=== PATIENT | female | born 1975 | race Caucasian/White ===

== ENCOUNTER 2022-01-22 00:09 | Inpatient (IN) ==
[2022-01-22 02:20] LABS: BUN/Creatinine Ratio 8 (6-26); Blood Urea Nitrogen 7 mg/dL (6-20); Calcium 8.7 mg/dL (8.6-10.3); Carbon Dioxide 24 mEq/L (23-29); Chloride 91 mEq/L (98-107); Glucose 124 mg/dL (70-105); Osmolality,Calculated 257 (280-300); Sodium 124 mEq/L (136-145)
[2022-01-22] MEDS ORDERED: 0.9 % Sodium Chloride 1,000 ML IVC ONE (02:31)
[2022-01-22 02:57] LABS: Alanine Aminotransferase 14 Units/L (7-52); Albumin 4.1 g/dL (3.5-5.7); Albumin/Globulin Ratio 1.5 (1.1-2.2); Alkaline Phosphatase 101 Units/L (34-104); Aspartate Amino Transferase 23 Units/L (13-39); Bilirubin,Indirect 0.5 mg/dL (0.0-1.0); Bilirubin,Total 0.5 mg/dL (0.3-1.0); Ethanol < 10 mg/dL (Less than 10); Globulin 2.8 g/dL (2.4-3.5); Total Protein 6.9 g/dL (6.4-8.9)
[2022-01-22 03:02] LABS: Basophils % 0.3 %; Eosinophils # 0.1 K/mcL (0.0-0.6); Eosinophils % 1.8 %; Hematocrit 36.5 % (35.3-44.9); Hemoglobin 12.7 g/dL (11.5-15.4); Immature Granulocytes % 0.1 % (0-4); Lymphocytes # 2.4 K/mcL (0.6-4.6); Lymphocytes % 30.3 %; Mean Corpuscular HGB Conc 34.8 g/dL (31.6-35.5); Mean Corpuscular Hemoglobin 29.2 pg (28.0-33.3); Mean Corpuscular Volume 83.9 fL (83.0-100.0); Mean Platelet Volume 10.4 fL (9.4-12.4); Monocytes # 0.6 K/mcL (0.0-1.3); Monocytes % 7.6 %; Neutrophils # 4.7 K/mcL (1.6-8.9); Platelet Count 255 K/mcL (140-400); Red Blood Count 4.35 M/mcL (3.82-4.97); Red Cell Distribution Width 13.5 % (11.5-14.5); Segmented Neutrophils % 59.9 %; White Blood Count 7.8 K/mcL (4.3-11.1)
[2022-01-22] MEDS ORDERED: Potassium Chloride Elixir 20 MEQ/15 ML UDC PO ONE (03:36)
[2022-01-22 03:37] LABS: Bilirubin,Urine Negative (Negative); Blood,Urine Negative (Negative); Clarity,Urine Clear (Clear); Color,Urine Colorless (Yellow); Glucose,Urine (UA) Normal (Normal); Ketones,Urine Negative (Negative); Leukocyte Esterase,Urine Negative (Negative); Nitrite,Urine Negative (Negative); PH,Urine 6.5 pH Units (5.0-8.0); Protein,Urine Negative (Neg-Trace); Specific Gravity,Urine 1.005 (1.010-1.025); Urobilinogen,Urine Normal (Normal)
[2022-01-22 03:50] LABS: Amphetamine Screen,Urine Negative ng/mL (Cutoff=1000); Barbiturate Screen,Urine Negative ng/mL (Cutoff=200); Benzodiazepines Screen,Urine Negative ng/mL (Cutoff=200); Cannabinoid Screen,Urine Positive ng/mL (Cutoff = 50); Cocaine Screen,Urine Negative ng/mL (Cutoff= 300); Opiate Screen,Urine Negative ng/mL (Cutoff=300); Phencyclidine Screen,Urine Negative ng/mL (Cutoff=25)
[2022-01-22 03:56] LABS: Magnesium 2.4 mg/dL (1.6-2.6)
[2022-01-22] MEDS ORDERED: Naloxone 0.4 MG/ML INJ IVP PRN (04:08)
[2022-01-22] MEDS ORDERED: Melatonin 3 MG TABLET PO PRN (04:08)
[2022-01-22] MEDS ORDERED: 0.9 % Sodium Chloride 1,000 ML IVC SCH (04:15)
[2022-01-22] MEDS ORDERED: Sennosides/Docusate Sodium TABLET PO PRN (05:50)
[2022-01-22 14:13] LABS: Calcium 8.6 mg/dL (8.6-10.3); Potassium 4.3 mEq/L (3.5-5.1)
[2022-01-22] MEDS: *HR* Labetalol 20 MG/4 ML SYRINGE IVP PRN ×2 (14:46→22:06)
[2022-01-22] MEDS: amLODIPine 5 MG TABLET PO SCH (17:36)
[2022-01-23] MEDS: *HR* Labetalol 20 MG/4 ML SYRINGE IVP PRN ×2 (03:11→10:52)
[2022-01-23 06:46] LABS: Basophils # 0.1 K/mcL (0.0-0.2); Basophils % 0.4 %; Eosinophils # 0.2 K/mcL (0.0-0.6); Eosinophils % 1.8 %; Hematocrit 43.9 % (35.3-44.9); Immature Granulocytes % 0.4 % (0-4); Lymphocytes # 2.8 K/mcL (0.6-4.6); Lymphocytes % 22.8 %; Mean Corpuscular HGB Conc 33.7 g/dL (31.6-35.5); Mean Corpuscular Hemoglobin 28.8 pg (28.0-33.3); Mean Corpuscular Volume 85.4 fL (83.0-100.0); Mean Platelet Volume 9.3 fL (9.4-12.4); Monocytes # 0.8 K/mcL (0.0-1.3); Monocytes % 6.7 %; Platelet Count 476 K/mcL (140-400); Red Blood Count 5.14 M/mcL (3.82-4.97); Red Cell Distribution Width 14.1 % (11.5-14.5); Segmented Neutrophils % 67.9 %
[2022-01-23 07:01] LABS: BUN/Creatinine Ratio 10 (6-26); Blood Urea Nitrogen 7 mg/dL (6-20); Calcium 9.7 mg/dL (8.6-10.3); Carbon Dioxide 24 mEq/L (23-29); Chloride 96 mEq/L (98-107); Glucose 113 mg/dL (70-105); Osmolality,Calculated 269 (280-300); Potassium 3.8 mEq/L (3.5-5.1); Sodium 130 mEq/L (136-145)
[2022-01-23 07:06] LABS: Hemoglobin 14.8 g/dL (11.5-15.4); Neutrophils # 8.4 K/mcL (1.6-8.9); White Blood Count 12.3 K/mcL (4.3-11.1)
[2022-01-23] MEDS ORDERED: *HR* LORazepam 2 MG/ML VIAL ONE (07:51)
[2022-01-23] MEDS ORDERED: *HR* LORazepam 2 MG/ML VIAL IM STA (07:57)
[2022-01-23] MEDS ORDERED: carvediloL 6.25 MG TABLET PO SCH (08:00)
[2022-01-23] MEDS ORDERED: lisinopriL 20 MG TABLET PO SCH ×2 (09:00→21:00)
[2022-01-23] MEDS: amLODIPine 5 MG TABLET PO SCH (09:07)
[2022-01-23] MEDS ORDERED: QUEtiapine Fumarate 25 MG TABLET PO ONE (11:42)
[2022-01-23] MEDS: carvediloL 6.25 MG TABLET PO SCH (16:42)
[2022-01-23] MEDS: *HR* LORazepam 0.5 MG TABLET PO SCH ×2 (16:42→20:49)
[2022-01-23 18:21] VITALS: O2SAT 97
[2022-01-23] MEDS ORDERED: QUEtiapine Fumarate 100 MG TABLET PO SCH (21:00)
[2022-01-24] MEDS: carvediloL 6.25 MG TABLET PO SCH (08:12)
[2022-01-24] MEDS: *HR* LORazepam 0.5 MG TABLET PO SCH (08:13)
[2022-01-24] MEDS: amLODIPine 5 MG TABLET PO SCH (08:13)
[2022-01-24 08:20] VITALS: TEMP 98.1
[2022-01-24 08:45] LABS: Basophils # 0.1 K/mcL (0.0-0.2); Basophils % 0.5 %; Eosinophils # 0.2 K/mcL (0.0-0.6); Eosinophils % 1.6 %; Hematocrit 40.9 % (35.3-44.9); Immature Granulocytes % 0.3 % (0-4); Lymphocytes # 2.7 K/mcL (0.6-4.6); Lymphocytes % 22.5 %; Mean Corpuscular HGB Conc 34.2 g/dL (31.6-35.5); Mean Corpuscular Hemoglobin 29.4 pg (28.0-33.3); Mean Corpuscular Volume 85.7 fL (83.0-100.0); Mean Platelet Volume 8.5 fL (9.4-12.4); Monocytes # 0.8 K/mcL (0.0-1.3); Monocytes % 6.5 %; Neutrophils # 8.2 K/mcL (1.6-8.9); Platelet Count 503 K/mcL (140-400); Red Blood Count 4.77 M/mcL (3.82-4.97); Red Cell Distribution Width 14.3 % (11.5-14.5); Segmented Neutrophils % 68.6 %
[2022-01-24 09:04] LABS: Calcium 9.5 mg/dL (8.6-10.3); Potassium 4.2 mEq/L (3.5-5.1)
[2022-01-24 09:25] VITALS: BP 138/80; PULSE 80
[2022-01-24] MEDS ORDERED: QUEtiapine Fumarate 25 MG TABLET PO SCH (12:00)
[2022-01-24] MEDS ORDERED: lisinopriL 20 MG TABLET PO SCH (18:00)
== END 2022-01-24 10:35 | DRG 817 ==
LOC: 2NNU 00:09 → EMEROOARM 00:09 → SUATTDRO 03:37 → 2NNU 04:10 → 3BNU 01-23 14:28
PROVIDERS: ADMIT Internal Medicine; ATTEND Family Medicine

== ENCOUNTER 2022-01-24 10:36 | Inpatient (IN) ==
[2022-01-24] MEDS ORDERED: traZODone 50 MG TABLET PO PRN (11:56)
[2022-01-24] MEDS ORDERED: Haloperidol Lactate 5 MG/ML VIAL IM PRN (11:56)
[2022-01-24] MEDS ORDERED: haloperidoL 5 MG TABLET PO PRN (11:56)
[2022-01-24] MEDS ORDERED: MOM Conc 10 ML UD.LIQ PO PRN (11:56)
[2022-01-24] MEDS ORDERED: *HR* LORazepam 2 MG/ML VIAL IM PRN (11:56)
[2022-01-24] MEDS ORDERED: hydrOXYzine pamoate 25 MG CAPSULE PO PRN (11:56)
[2022-01-24] MEDS ORDERED: *HR* LORazepam 1 MG TABLET PO PRN (11:56)
[2022-01-24] MEDS ORDERED: Mag Hydrox/Al Hydrox/Simeth 30 ML UDC PO PRN (11:56)
[2022-01-24] MEDS: QUEtiapine Fumarate 25 MG TABLET PO SCH (13:54)
[2022-01-24] MEDS: Nicotine 21 MG PATCH.TD24 TD SCH (13:55)
[2022-01-24] MEDS: Ibuprofen 400 MG TABLET PO PRN (13:58)
[2022-01-24] MEDS: carvediloL 6.25 MG TABLET PO SCH (16:49)
[2022-01-24] MEDS: lisinopriL 20 MG TABLET PO SCH (16:49)
[2022-01-24] MEDS: lamoTRIgine 25 MG TABLET PO SCH (20:31)
[2022-01-24] MEDS ORDERED: QUEtiapine Fumarate 100 MG TABLET PO SCH (21:00)
[2022-01-25] MEDS ORDERED: PARoxetine 20 MG TABLET PO SCH (09:00)
[2022-01-25] MEDS: carvediloL 6.25 MG TABLET PO SCH ×2 (09:15→17:56)
[2022-01-25] MEDS: amLODIPine 5 MG TABLET PO SCH (09:15)
[2022-01-25] MEDS: QUEtiapine Fumarate 25 MG TABLET PO SCH ×2 (09:15→12:02)
[2022-01-25] MEDS: Nicotine 21 MG PATCH.TD24 TD SCH (09:17)
[2022-01-25 12:42] LABS: Basophils # 0.1 K/mcL (0.0-0.2); Basophils % 0.5 %; Eosinophils # 0.2 K/mcL (0.0-0.6); Eosinophils % 1.9 %; Hemoglobin 14.4 g/dL (11.5-15.4); Immature Granulocytes % 0.3 % (0-4); Lymphocytes # 2.7 K/mcL (0.6-4.6); Lymphocytes % 24.8 %; Mean Corpuscular HGB Conc 34.3 g/dL (31.6-35.5); Mean Corpuscular Hemoglobin 29.8 pg (28.0-33.3); Mean Platelet Volume 9.3 fL (9.4-12.4); Monocytes # 0.7 K/mcL (0.0-1.3); Monocytes % 6.7 %; Neutrophils # 7.2 K/mcL (1.6-8.9); Platelet Count 429 K/mcL (140-400); Red Blood Count 4.83 M/mcL (3.82-4.97); Red Cell Distribution Width 14.1 % (11.5-14.5); Segmented Neutrophils % 65.8 %
[2022-01-25 13:01] LABS: Chol/HDL Ratio 4.7 (0-4.9)
[2022-01-25 13:05] LABS: Alanine Aminotransferase 24 Units/L (7-52); Albumin 4.4 g/dL (3.5-5.7); Albumin/Globulin Ratio 1.4 (1.1-2.2); Alkaline Phosphatase 105 Units/L (34-104); Aspartate Amino Transferase 27 Units/L (13-39); BUN/Creatinine Ratio 20 (6-26); Bilirubin,Total 0.6 mg/dL (0.3-1.0); Blood Urea Nitrogen 16 mg/dL (6-20); Calcium 9.7 mg/dL (8.6-10.3); Carbon Dioxide 25 mEq/L (23-29); Chloride 98 mEq/L (98-107); Globulin 3.2 g/dL (2.4-3.5); Glucose 110 mg/dL (70-105); Osmolality,Calculated 272 (280-300); Potassium 4.5 mEq/L (3.5-5.1); Sodium 130 mEq/L (136-145); Total Protein 7.6 g/dL (6.4-8.9)
[2022-01-25 13:18] LABS: Thyroid Stimulating Hormone 5.194 mcIU/mL (0.340-5.600)
[2022-01-25 13:37] LABS: Estimated Average Glucose 111 mg/dl; Hemoglobin A1C 5.5 %
[2022-01-25] MEDS: lisinopriL 20 MG TABLET PO SCH (17:57)
[2022-01-25] MEDS: QUEtiapine Fumarate 100 MG TABLET PO SCH (21:25)
[2022-01-25] MEDS: lamoTRIgine 25 MG TABLET PO SCH (21:25)
[2022-01-26] MEDS: carvediloL 6.25 MG TABLET PO SCH ×2 (08:41→18:46)
[2022-01-26] MEDS: QUEtiapine Fumarate 25 MG TABLET PO SCH ×3 (08:41→14:15)
[2022-01-26] MEDS: amLODIPine 5 MG TABLET PO SCH (08:41)
[2022-01-26] MEDS: Nicotine 21 MG PATCH.TD24 TD SCH (10:06)
[2022-01-26] MEDS: lisinopriL 20 MG TABLET PO SCH (18:46)
[2022-01-26] MEDS ORDERED: lamoTRIgine 25 MG TABLET PO SCH (21:00)
[2022-01-26] MEDS: QUEtiapine Fumarate 100 MG TABLET PO SCH (21:35)
[2022-01-26] MEDS: Ibuprofen 400 MG TABLET PO PRN (22:17)
[2022-01-27 09:44] VITALS: BP 169/103; PULSE 79; TEMP 97.4; O2SAT 100
[2022-01-27] MEDS: carvediloL 6.25 MG TABLET PO SCH (10:31)
[2022-01-27] MEDS: amLODIPine 5 MG TABLET PO SCH (10:31)
[2022-01-27] MEDS: QUEtiapine Fumarate 25 MG TABLET PO SCH ×2 (10:32→12:45)
[2022-01-27] MEDS: Nicotine 21 MG PATCH.TD24 TD SCH (10:32)
== END 2022-01-27 14:25 | disposition home or self-care (01) | DRG 750 ==
LOC: 1ANU 10:36
PROVIDERS: ADMIT Psychiatry & Neurology Psychiatry; ATTEND Psychiatry & Neurology Psychiatry